=== PATIENT | female | born 1970 | race Caucasian/White ===

== ENCOUNTER 2018-02-23 09:01 | Day surgery (SDC) | payer OTHER ==
[2018-02-22 18:06] VITALS: BMI 29.2
[2018-02-23] MEDS ORDERED: Oxymetazoline HCl 0.05% ( 15 ML ) ONE ×2 (10:00→11:03)
[2018-02-23] MEDS ORDERED: Lidocaine 1% w/Epinephrine 1:100K 30 ML VIAL ONE (10:00)
[2018-02-23] MEDS ORDERED: Famotidine/PF 20 mg/2ml Vial ONE (10:30)
[2018-02-23] MEDS ORDERED: Fentanyl 100 MCG/2 ML VIAL ONE (10:30)
[2018-02-23] MEDS ORDERED: Meperidine HCl/PF 25 MG/ML VIAL ONE (10:52)
[2018-02-23] MEDS ORDERED: Midazolam HCl 2 mg/2 ml Vial ONE (10:53)
[2018-02-23] MEDS ORDERED: Ondansetron PF 4 MG/2 ML Vial ONE (22:16)
[2018-02-23] MEDS ORDERED: PROPOFOL 200 MG/20 ML VIAL ONE (22:16)
[2018-02-23] MEDS ORDERED: Lidocaine 1% PF 5 ML VIAL ONE (22:16)
[2018-02-23] MEDS ORDERED: Dexamethasone 20 MG/5 ML VIAL ONE (22:16)
--- NOTE | 2018-02-25 11:45 | OP ---
DATE OF PROCEDURE: 02/23/2018 PREOPERATIVE DIAGNOSES: Hypertrophic inferior turbinates and depressed nasal fracture. POSTOPERATIVE DIAGNOSES: Hypertrophic inferior turbinates and depressed nasal fracture. PROCEDURES PERFORMED: Closed reduction of nasal fracture with internal and external splinting and bilateral nasal endoscopy with submucosal resection of inferior turbinates. PROCEDURE IN DETAIL: After consent was obtained, the patient was identified, brought to the OR, placed on table in supine position. Laryngeal mask anesthesia was obtained. The patient was positioned for surgery. Topical decongestion was achieved and the septal deformity was reduced. After that was reduced, we were able to manipulate the right nasal bone back into place, where it audibly clicked and after which restored normal external contour. We then injected the inferior turbinates with 1% lidocaine with 1:100,000 epinephrine under endoscopic visualization, proceeded with bilateral submucosal resection of inferior turbinates. An external splint was then placed and the patient was awakened and extubated, taken to recovery room in stable condition for discharge home. Job ID: [id number]
== END 2018-02-23 12:52 | disposition home or self-care (01) ==
LOC: SDC 09:01
PROVIDERS: ATTEND Specialist
DX: S02.2XXA Fracture of nasal bones, initial encounter for closed fracture (principal); J34.3 Hypertrophy of nasal turbinates; F41.9 Anxiety disorder, unspecified; Z90.710 Acquired absence of both cervix and uterus; Z79.52 Long term (current) use of systemic steroids; Z79.1 Long term (current) use of non-steroidal anti-inflammatories (NSAID); Z79.899 Other long term (current) drug therapy; Z98.890 Other specified postprocedural states
CPT/HCPCS: 85014; J1100; J2001; J2175; J2250; J2405; J2704; J3010; S0028